=== PATIENT | female | born 1990 | race Caucasian/White ===

== ENCOUNTER 2019-05-24 17:58 | Inpatient (IN) | payer OTHER ==
[~2019-05-24] VITALS: Ht 162.6 cm; Wt 56.7 kg
[2019-05-24 21:36] LABS: Source, Urine Clean Catch
[2019-05-24 21:38] LABS: Bilirubin, Urine Neg (Neg); Blood, Urine 5+ (Neg); Glucose Qualitative, Urine Neg (Neg); Ketones, Urine Neg (Neg); Leukocyte Esterase, Urine 3+ (Neg); Nitrite, Urine Neg (Neg); Protein, Urine 3+ (Neg); Specific Gravity, Urine 1.025 (1.003-1.022); Urobilinogen, Urine NORM (Normal)
[2019-05-24 21:44] LABS: Appearance, Urine Hazy (Clear); Color, Urine Amber (P-Yellow)
[2019-05-24 21:45] LABS: Bacteria Many /hpf; Mucus Light (0-Heavy); Squamous Epithelial Cells Few /hpf (Few); White Blood Cells, Urine TNTC /hpf (0-5)
[2019-05-24 23:10] LABS: BASOPHILS ABSOLUTE AUTO 0.08 K/mm3 (0.00-0.23); BASOPHILS PERCENT AUTO 1 % (0-2); EOSINOPHILS ABSOLUTE AUTO 0.36 K/mm3 (0.00-0.68); EOSINOPHILS PERCENT AUTO 3 % (0-6); Hemoglobin 12.5 g/dL (11.5-16.0); IMMATURE GRAN ABSOLUTE AUTO 0.07 K/mm3 (0.00-0.10); IMMATURE GRAN PERCENT AUTO 1 % (0-1); LYMPHOCYTES ABSOLUTE AUTO 2.06 K/mm3 (0.84-5.20); LYMPHOCYTES PERCENT AUTO 19 % (21-46); MONOCYTES ABSOLUTE AUTO 0.61 K/mm3 (0.16-1.47); MONOCYTES PERCENT AUTO 6 % (4-13); Mean Corpuscular HGB 27.7 pg (26.0-34.0); Mean Corpuscular HGB Conc 32.9 g/dL (31.5-36.5); Mean Corpuscular Volume 84 fL (80-100); Mean Platelet Volume 8.6 fL (9.1-12.4); NEUTROPHILS ABSOLUTE AUTO 7.97 K/mm3 (1.96-9.15); NEUTROPHILS PERCENT AUTO 72 % (41-73); Platelet Count 411 K/mm3 (150-400); RDW Coefficient Variation 13.2 % (11.7-14.2); RDW Standard Deviation 41.1 fL (35.1-46.3); Red Blood Cell Count 4.51 M/mm3 (3.80-5.20); White Blood Cell Count 11.15 K/mm3 (4.00-11.30)
[2019-05-24 23:27] LABS: Alanine Aminotransfer (ALT/SGP 38 U/L (12-78); Albumin, Blood 2.7 g/dL (3.4-5.0); Albumin/Globulin Ratio 0.6 (0.8-1.8); Alk Phos 223 U/L (50-136); Anion Gap 4 mmol/L (6-16); Aspartate Aminotrans (AST/SGOT 18 U/L (12-37); Bilirubin, Total 0.1 mg/dL (0.1-1.0); Blood Urea Nitrogen 11 mg/dL (8-24); Bun/Creatinine Ratio 17.3 (12.0-20.0); CO2, Blood 28 mmol/L (21-32); Calcium, Blood 8.6 mg/dL (8.5-10.1); Chloride, Blood 105 mmol/L (98-108); Creatinine, Blood 0.64 mg/dL (0.40-1.00); Globulin, Blood 4.4 g/dL (2.2-4.0); Glomerular Filtration Rate >60 (60-); Glucose, Blood 101 mg/dL (70-99); Potassium, Blood 3.6 mmol/L (3.5-5.5); Sodium, Blood 137 mmol/L (136-145); Total Protein, Blood 7.1 g/dL (6.4-8.2)
--- NOTE | 2019-05-25 07:50 | NUR ---
PT ARRIVED FROM ER TO ROOM 310 VIA W/C. A/O X4 AND INDEPENDENT WITH ADL'S IN ROOM. PT ORIENTED TO ROOM AND CALL SYSTEM, DENIES PAIN AT THIS TIME, ASKING FOR ICE WATER. LEFT HIP CELLULITUS W/ADA, MARIO AT THIS TIME. VS OBTAINED, SEE CHART. WILL CONTINUE TO MONITOR.
--- NOTE | 2019-05-25 12:00 | NUR ---
PT STARTED ASKING FOR HER SUBOXONE. ORTHODONTIC ASSISTANT CALLED [facility] FOR DOSING AND FOUND THAT PT HAD NOT ACTUALLY STARTED TAKING THIS MED YET. PT SAYING THAT SHE WANTS TO GO HOME IF SHE CAN'T GET THIS MEDICATION. DR GODDARD NOTIFIED, HE INDICATED THAT HE WOULD INVESTIGATE DOSAGE HE IS CAPABLE HERE IN THE HOSPITAL
--- NOTE | 2019-05-25 14:53 | NUR ---
ORDERS RECEIVED FOR SL SUBOXONE DAILY. GIVEN TO PT PER EMAR. PT AT THIS TIME ALLOWED THAT STARTING OF HER VANCO
--- NOTE | 2019-05-25 15:25 | NUR ---
PT REPORTS THAT HER IV SITE IS BURNING, INFUSION STOPPED, SHE DECLINES A NEW SITE AND SAYS THAT SHE WANTS TO GO HOME.
--- NOTE | 2019-05-25 16:00 | NUR ---
DR GODDARD NOTIFIED THAT PT WANTS TO LEAVE AND HE DECLINES TO DISCHARGE IT IS NOT SAFE. PT IS INSISTING ON LEAVING AMA. CALLING [facility] TRYING TO ARRANGE A RIDE
--- NOTE | 2019-05-25 16:09 | NUR ---
PT REMAINS ADAMANT ABOUT LEAVING AND AMA PAPER SIGNED.
--- NOTE | 2019-05-25 18:26 | NUR ---
PT WAITING FOR HER RIDE TO ARRIVE, [facility] AND [facility] DECLINED TO ARRANGE RIDE TO BACK TO [place].
--- NOTE | 2019-05-25 19:13 | NUR ---
PATIENT REPORTS LEAVING AMA AND RIDE ON THE WAY. SITTING ON BED. CALL LIGHT IN REACH.
--- NOTE | 2019-05-25 19:39 | NUR ---
PATIENT LEFT AMA. HER RIDE PICKED HER UP AND PERSONAL BELONGINGS TAKEN. SIGNED AMA SHEET DURING DAY SHIFT. SOLAR INSTALLER TECHNICIAN STACEY PICKED UP CHART.
== END 2019-05-25 19:40 | disposition left against medical advice (07) | DRG 603 ==
LOC: ER 17:58 → MEDS 05-25 02:24 → ERHOLD 05-25 02:24 → MEDS 05-25 07:53
PROVIDERS: Emergency Medicine; Physician Assistant; ADMIT Family Medicine
PROC: 0Y9 Anatomical Regions, Lower Extremities, Drainage (ICD-10-PCS; principal; 2019-05-24)
DX: L03.317 Cellulitis of buttock (principal); L02.416 Cutaneous abscess of left lower limb; F17.210 Nicotine dependence, cigarettes, uncomplicated
CPT/HCPCS: 10160; 36415; 73701; 80053; 81001; 81025; 83605; 85025; 96365; 96366; 96367; 96372; 96375; 99285-25; J0690; J0696; J1650; J3370; J7120; Q9967